=== PATIENT | male | born 1995 ===

== ENCOUNTER 2019-10-04 22:35 | Emergency (ER) | payer SELFPAY ==
[2019-10-04] MEDS ORDERED: Lactated Ringers 1,000 ML IV ONE (22:48)
[2019-10-04] MEDS ORDERED: Diphtheria,Pertussis(Acell),Tetanus Vaccine 0.5 ML Syringe IM ONE (22:50)
[2019-10-04 23:06] LABS: BLOOD UREA NITROGEN,BUN 9 mg/dL (7.0-18.0); CARBON DIOXIDE,CO2 23.6 mmol/L (21.0-32.0); CHLORIDE,CL 105 mmol/L (98-107); GLUCOSE RANDOM 100 mg/dL (74-106); POTASSIUM,K 3.5 mmol/L (3.5-5.1); SODIUM,NA 141 mmol/L (136-148)
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
[2019-10-05] MEDS ORDERED: Lidocaine 1% 10 ML MDV INJECT ONE (00:25)
[2019-10-05] MEDS: Iopamidol 755 MG/ML 500 ML Multipack Bottle IVPUSH STA ×2 (01:28→01:30)
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
== END 2019-10-05 06:30 | disposition home or self-care (01) ==
LOC: MW.ED 22:35
DX: S06.0X9A Concussion with loss of consciousness of unspecified duration, initial encounter (principal); S01.81XA Laceration without foreign body of other part of head, initial encounter; S80.211A Abrasion, right knee, initial encounter; S50.311A Abrasion of right elbow, initial encounter; S40.011A Contusion of right shoulder, initial encounter; S40.012A Contusion of left shoulder, initial encounter; F10.129 Alcohol abuse with intoxication, unspecified; Y90.6 Blood alcohol level of 120-199 mg/100 ml; R41.82 Altered mental status, unspecified; Z23 Encounter for immunization; V89.2XXA Person injured in unspecified motor-vehicle accident, traffic, initial encounter
CPT/HCPCS: 36415; 70450; 71045; 71260; 72125; 72128; 72131; 72170; 73030; 74177; 80053; 80305; 80307; 83605; 84484; 85027; 85610; 86850; 86900; 86901; 90471; 90715; 93005; 96360; 99285; J2001; J7120; Q9967; 99283